=== PATIENT | male | born 1955 | race Caucasian/White ===

== ENCOUNTER → 2017-11-11 08:41 | Outpatient (CLI) | payer MEDICAID ==
[~2017-11-11] VITALS: Ht 180.3 cm; Wt 93.2 kg
--- NOTE | ~2017-11-11 | HEMODYNAMI ---
PATIENT:JASS TOPETE MEDICAL RECORD: [id number] : 55 LOCATION:TARA ADMISSION DATE: 11/11/17 Generatedon:11/11/201711:35 Patient name: JASS TOPETE Patient #: [id number] SSN: : 1 09/24/1954 Date of study: 11/11/2017 Page: Of Hemodynamic Procedure Report Patient Data Patient Demographics Procedure consent was obtained First Name: JASS Gender: Male Last Name: YOSELYN : 1955 [facility] Initial: MINERVA Age: 62 year(s) Patient #: [id number] Race: Unknown Additional ID: [id number] Contact details [address]: [address] [place] [address] State: [place] City: [place] Zip code: [address] Past Medical History Allergies Allergen Reaction Date Comments Reported Other allergy 11/11/2017 sulfa Admission Admission Data Admission Date: 11/11/2017 Admission Time: 8:41 Admit Source: Other Lab Results Lab Result Date: 11/11/2017 Lab Result Time: 9:20 Biochemistry Name Units Result Min Max BUN mg/dl 20 --(----)*- 7 18 Creatinine mg/dl 1.2 --(---*)-- 0.6 1.3 CBC Name Units Result Min Max Hematocrit % 44.4 --(*---)-- 42 54 Hemoglobin g/dl 15.5 --(-*--)-- 13.5 17.5 Procedure Procedure Types Cath Procedure Diagnostic Procedure C [facility] w/Coronaries PCI Procedure Coronary Stent Coronary Stent Initial Procedure Description Procedure Date Procedure Date: 11/11/2017 Procedure Start Time: 11:17 Procedure End Time: 11:33 Procedure Staff Name Function Hieu Fernandez MD Performing Physician Jose Nye RT Monitor Monet Ibrahim RT Scrub Aldo Petty RN Nurse Procedure Data Cath Procedure Fluoroscopy Diagnostic fluoroscopy Total fluoroscopy Time: 2.6 time: 2.6 min min Diagnostic fluoroscopy Total fluoroscopy dose: 594 dose: 594 mGy mGy Contrast Material Contrast Material Type Amount (ml) Isovue 300 65 Entry Location Entry Primary Successful Side Size Upsize Upsize Entry Closure Knapp ccessful Closure Location (Fr) 1 (Fr) 2 (Fr) Remarks Device Remarks Radial Right 6 Fr Mechanical artery Short Compression Estimated blood loss: 10 ml Diagnostic catheters Device Type Used For End Catheter Placement DIAGNOSTIC [place] 110cm 5 Procedure Fr catheter ([id number]) DIAGNOSTIC AR MOD 5Fr Procedure Catheter ([id number]) Procedure Complications No complications Procedure Medications Medication Administration Route Dosage Oxygen NC 2 l/min Lidocaine 2% added to field 20 Heparin Flush Bag added to field 2 bags (1000units/500ml NS) 0.9% NaCl I.V. 100 ml/hr Versed I.V. 2 mg Fentanyl I.V. 100 mcg Radial Cocktail I.A. 1 syringe (Verapomil 2mg/Nitro 400mcg/Heparin 1500units) Versed I.V. 2 mg Fentanyl I.V. 100 mcg Heparin Bolus I.V. 4000 units Integrilin (Bolus I.V. 8.5 ml 2mg/ml) Versed I.V. 1 mg Fentanyl I.V. 50 mcg Plavix P.O. 600 mg Hemodynamics Rest HGB: 15.5 (g/dl) Heart Rate: 56 (bpm) Snapshots Pre Cath Intra NCS Post Cath Vital Signs Time Heart Resp SPO2 etCO2 NIBP (mmHg) Rhythm Pain Sedation Rate (ipm) (%) (mmHg) Status Level (bpm) 11:05:00 58 16 97 0 142/88(119) NSR 0 (11) 10(A) , No pain 11:09:46 56 15 97 25.5 139/83(112) NSR 0 (11) 10(A) , No pain 11:14:27 61 16 96 33 139/90(108) NSR 0 (11) 10(A) , No pain 11:19:12 65 17 94 24 126/76(101) NSR 0 (11) 9(A) , No pain 11:23:52 65 18 94 38.3 133/78(100) NSR 0 (11) 9(A) , No pain 11:28:31 64 17 95 37.6 125/79(98) NSR 0 (11) 9(A) , No pain 11:30:42 64 18 95 39.8 131/73(93) NSR 0 (11) 10(A) , No pain Medications Time Medication Route Dose Verified Delivered Reason Note s Effectiveness by by 11:04:18 Oxygen NC 2 l/min Hieu Buffie used for Jim Petty RN procedure 11:04:24 Lidocaine 2% added 20ml Hieu Hagen for local to vial Jim Fernandez MD anesthetic field 11:04:31 Heparin Flush added 2 bags Hieu Hagen used for Bag to Jim Fernandez MD procedure (1000units/500ml field NS) 11:10:08 0.9% NaCl I.V. 100 Hieu Buffie Per physician ml/hr Jim Petty RN 11:14:47 Versed I.V. 2 mg Hieu Carlson for sedation Jim Petty RN 11:14:52 Fentanyl I.V. 100 mcg Hieu Carlson for sedation Jim Petty RN 11:18:29 Radial Cocktail I.A. 1 Hieu Hieu for (Verapomil syringe Jim Fernandez MD vasodilation 2mg/Nitro 400mcg/Heparin 1500units) 11:19:15 Versed I.V. 2 mg Hieu Chungie for sedation Jim Petty RN 11:19:20 Fentanyl I.V. 100 mcg Hieu Carlson for sedation Jim Petty RN 11:23:17 Heparin Bolus I.V. 4000 Hieu Buffie for veri fied units Jim Petty RN anticoagulation with dr fernandez 11:24:31 Integrilin I.V. 8.5 ml Hieu Carlson for wast ed (Bolus 2mg/ml) Jim Petty RN antiplatelet 1.5 ml therapy of vial 11:25:39 Versed I.V. 1 mg Hieu Carlson for sedation Jim Petty RN 11:25:42 Fentanyl I.V. 50 mcg Hieu Carlson for sedation Jim Petty RN 11:34:30 Plavix P.O. 600 mg Hieu Carlson for Jim Petty RN antiplatelet therapy Procedure Log Time Note 10:56:56 Informed consent obtained and on chart 10:57:00 Admit Source: Other 10:57:13 Diagnostic Cath status Elective 10:57:14 Aldo Petty RN sent for patient. Start room use. 10:57:15 Time tracking: Regular hours 10:57:18 Plan of Care:Hemodynamics will remain stable., Cardiac rhythm will remain stable., Comfort level will be maintained., Respiratory function will remain adequate., Patient/ family verbilizes understanding of procedure., Procedure tolerated without complication., Recovers from procedure without complications.. 10:57:22 H&P Date Dictated: 11/11/2017 New H&P dictated by physician.. 10:59:17 Patient received from Pre/Post Procedure Room to CCL 1 Alert and oriented. Tansferred to table in Supine position. 10:59:18 Warm blankets applied, and john hugger turned on for patient comfort. 10:59:19 Correct patient and procedure confirmed by team. 10:59:19 ECG and BP/O2 sat monitors applied to patient. 10:59:21 Pre-procedure instructions explained to patient. 10:59:22 Pre-op teaching completed and patient verbalized understanding. 10:59:23 Family in waiting room. 10:59:23 Patient NPO since Midnight. 10:59:47 Patient allergic to Other allergysulfa 11:04:02 Vital chart was started 11:04:18 Oxygen 2 l/min NC was administered by Aldo Petty RN; used for procedure; 11:04:24 Lidocaine 2% 20ml vial added to field was administered by Hieu Fernandez MD; for local anesthetic; 11:04:31 Heparin Flush Bag (1000units/500ml NS) 2 bags added to field was administered by Hieu Fernandez MD; used for procedure; 11:10:08 0.9% NaCl 100 ml/hr I.V. was administered by Aldo Petty RN; Per physician; 11:11:55 Baseline sample Acquired. 11:11:58 Rhythm: sinus rhythm 11:12:00 Full Disclosure recording started 11:12:02 Is the patient allergic to Iodine/contrast media? No. 11:12:04 Is patient on blood thinner?No 11:12:12 Patient diabetic? No. 11:12:14 Previous problem with sedation/anesthesia? No ? 11:12:15 Snore? Yes 11:12:16 Sleep apnea? No 11:12:17 Deviated septum? No 11:12:18 Opens mouth fully? Yes 11:12:18 Sticks out tongue? Yes 11:12:21 Airway obstruction? No ? 11:12:29 Pre procedure: left posterior tibial pulse 2+ Normal; easily identifiable; not easily obliterated 11:12:38 Modified Asad's test Ulnar < 7 seconds 11:12:40 Patient pain scale 0/10 ?. 11:12:47 IV patent on arrival in left wrist with 0.9% NaCl at [facility]. 11:13:14 Lab Result : Creatinine 1.2 mg/dl 11:13:14 Lab Result : BUN 20 mg/dl 11:13:14 Lab Result : Hematocrit 44.4 % 11:13:14 Lab Result : Hemoglobin 15.5 g/dl 11:13:16 Lab results completed and on chart. 11:13:18 Right Radial & Right Groin area was prepped with chlora-prep and draped in sterile fashion 11:13:19 Alarms reviewed by R. N. 11:13:20 Sharps counted by scrub and verified by R.N. 11:13:22 Use device set Radial Dx or PCI 11:13:23 ACIST Syringe (15309) opened to sterile field. 11:13:23 Medline Cath Pack ([id number]) opened to sterile field. 11:13:24 Bag Decanter (2002S) opened to sterile field. 11:13:26 ACIST Hand Control (68916) opened to sterile field. 11:13:26 ACIST Manifold (52356) opened to sterile field. 11:13:26 Tegaderm 4 x 4 (1626W) opened to sterile field. 11:13:28 MBrace Wrist Support ([id number]) opened to sterile field. 11:13:31 DIAGNOSTIC WIRE .035 260cm J wire (060530) opened to sterile field. 11:13:43 SHEATH 6Fr Prelude Radial ([id number]) opened to sterile field. 11:13:54 Physician arrived 11:13:54 --------ALL STOP TIME OUT------ 11:13:54 Final Timeout: patient, procedure, and site verified with staff and physician. All members of the team are in agreement. 11:13:56 Right Radial & Right Groin site verified by team. 11:13:59 Physical assessment completed. ASA score P 2 - A patient with mild systemic disease as per Hieu Fernandez MD. 11:14:02 Sedation plan: IV Moderate Sedation Medication:Versed, Fentanyl 11:14:47 Versed 2 mg I.V. was administered by Aldo Petty RN; for sedation; 11:14:52 Fentanyl 100 mcg I.V. was administered by Aldo Petty RN; for sedation; 11:17:22 Zero performed for pressure channel P1 11:17:37 Procedure started. 11:17:41 Local anesthetic to right radial artery with Lidocaine 2% by Hieu Fernandez MD.INITIAL ACCESS ONLY 11:17:49 A 6 Fr Short sheath was inserted into the Right Radial artery 11:18:29 Radial Cocktail (Verapomil 2mg/Nitro 400mcg/Heparin 1500units) 1 syringe I.A. was administered by Hieu Fernandez MD; for vasodilation; 11:18:55 A DIAGNOSTIC [place] 110cm 5 Fr catheter (896588) was advanced over the wire and used for Procedure. 11:19:15 Versed 2 mg I.V. was administered by Aldo Petty RN; for sedation; 11:19:20 Fentanyl 100 mcg I.V. was administered by Aldo Petty RN; for sedation; 11:19:30 LV gram done using BRYANT 11:19:33 Injector settings: Ml/sec: 5, Volume: 15, 11:19:46 EF : 60 % 11:19:52 LCA angiography performed. 11:20:15 INFLATOR Merit BasixCompak (PE0545) opened to sterile field. 11:20:15 CHOICE PT Extra Support 182cm wire ([id number]) opened to sterile field. 11:20:22 GUIDE 6FR XBLAD 3.5 catheter (65528958) opened to sterile field. 11:21:12 Catheter exchanged over wire. 11:21:16 A DIAGNOSTIC AR MOD 5Fr Catheter (685212E) was advanced over the wire and used for Procedure. 11:22:02 RCA angiography performed. 11:22:08 Catheter removed. 11:23:17 Heparin Bolus 4000 units I.V. was administered by Aldo Petty RN; for anticoagulation; verified with dr fernandez 11:23:21 6 Fr xblad 3.5 guide catheter was inserted over the wire 11:24:31 Integrilin (Bolus 2mg/ml) 8.5 ml I.V. was administered by Aldo Petty RN; for antiplatelet therapy; wasted 1.5 ml of vial 11:25:29 choice pt es wire advanced. 11:25:30 Wire advanced across lesion. 11::39 Versed 1 mg I.V. was administered by Aldo Petty RN; for sedation; ::42 Fentanyl 50 mcg I.V. was administered by Aldo Petty RN; for sedation; ::20 Place stent Inflation Number: 1 A INTEGRITY RX 3.0 x 18 stent ([id number]) was prepped and advanced across the Prox LAD. The stent was deployed at 17 CLAIRE for 0:10 (min:sec). 11::36 Stent catheter was removed intact over wire. 11::36 Wire removed. 11::46 Guide catheter removed. 11::53 TR BAND Large ([id number]) opened to sterile field. 11::00 Sheath removed intact; hemostasis achieved with Mechanical Compression to the Right Radial artery. 11:27:02 Procedure ended.(Physican Out) 11:27:11 Fluoroscopy time 02.60 minutes. 11:27:15 Fluoroscopy dose: 594 mGy 11::15 Flurop Dose total: 594 11::23 Contrast amount:Isovue 300 65ml. 11:27:24 Sharps counted by scrub and verified by R.N. 11::44 TR band inflated with 11cc of air. 11:29:15 Insertion/operative site no bleeding no hematoma. 11:29:22 Post right radial artery:stable, soft, clean and dry ::23 Post Procedure Pulses reassessed and unchanged 11::26 Post-procedure physical assessment completed. ASA score P 2 - A patient with mild systemic disease as per Hieu Fernandez MD. 11::27 Post procedure rhythm: unchanged. 11::31 Estimated blood loss: 10 ml 11::32 Post procedure instruction explained to patient.Patient verbalizes understanding. 11::33 Patient needs reinforcement of post procedure teaching. 11:29:40 Procedure type changed to Cath procedure, Diagnostic procedure, LHC, LHC w/Coronaries, PCI procedure, Coronary Stent, Coronary Stent Initial 11:30:20 Procedure and supply charges have been captured, reviewed, submitted and are correct. 11:30:23 Procedure Complication : No complications 11:32:56 Vital chart was stopped 11:32:57 See physician's report for complete and final results. 11:32:58 Report given to Pre/Post Procedure Room. 11:33:00 Patient transfered to Pre/Post Procedure Room with Stretcher. 11:33:02 Procedure ended. 11:33:02 Full Disclosure recording stopped 11:33:05 End room use (Document Last) 11:34:30 Plavix 600 mg P.O. was administered by Aldo Petty RN; for antiplatelet therapy; Intervention Summary Intervention Notes Time ActionType Lesion and Equipment Action# Pressure Duration Attributes Used 11:26:[address] stent Prox LAD INTEGRITY RX 1 17 00:10 3.0 x 18 stent ([id number]) Device Usage Item Name Manufacture Quantity Catalog Number Hospital Part Current M inimal Lot# / Charge Number Stock Stock Serial# Code ACIST Syringe Acist 1 76695 284261 627448 718645 2 0 (64754) Medical Systems Carmolex, Medline Cath Cardinal 1 [id number] 508552 82227 266997 5 The Label Corp ([id number]) Bag Decanter Microtek 1 2001S 105129 24578 176502 5 (2001S) Medical Inc. ACIST Hand Acist 1 86691 311318 405971 922412 5 Control (39696) Medical Systems Inc ACIST Manifold Acist 1 09745 913658 513550 775868 5 (06002) Medical Systems Inc Tegaderm 4 x 4 3M 1 1626W 597945 432300 819583 5 (1626W) MBrace Wrist Advanced 1 140-0250-00 681633 52820 735275 5 Support Vascular (105700693) Dynamics DIAGNOSTIC WIRE [facility] [place] 1 730923 431797 396706 498131 3 0 .035 260cm J wire (266790) SHEATH 6Fr Merit 1 [id number] 283155 730504 443489 5 Prelude Radial Medical ([id number]) DIAGNOSTIC Terumo 1 40-1793 593214 228569 825279 5 [place] 110cm 5 Fr catheter (689328) INFLATOR Merit Merit 1 [id number] 283320 561876 874196 1 5 DSG Technologies Medical (HB1795) CHOICE PT Extra [place] 1 [id number] 834146 733006 589896 5 Support 182cm Scientific wire ([id number]) GUIDE 6FR XBLAD Cardinal 1 [id number] 227066 354982 783518 1 0 3.5 catheter Health (58416710) DIAGNOSTIC AR Cardinal 1 [id number] 129892 040956 062962 1 5 MOD 5Fr Health Catheter (858457A) INTEGRITY RX Medtronic 1 [id number] 615734 264245 615876 5 [id number] 3.0 x 18 stent ([id number]) TR BAND Large Terumo 1 [id number] 266586 060289 757252 4 0 ([id number]) Signature Audit [place] Stage Time Signature Unsigned Intra-Procedure 11/11/2017 Jose Nye 11:35:00 AM RT(R) Signatures Monitor : Jose Nye RT Signature : Date : Time : [place] [id number] [facility] [place] [address]
--- NOTE | ~2017-11-11 | HP ---
PATIENT: JASS HALL MEDICAL RECORD: [id number] ACCOUNT: [id number] LOCATION:TARA : 55 ADMISSION DATE: 11/11/17 HISTORY AND PHYSICAL EXAMINATION DATE OF SERVICE: 11/11/2017 for the H&P. DIAGNOSES: 1. Angina. 2. Abnormal nuclear stress test. 3. Hypertension. 4. Hyperlipidemia. HISTORY OF PRESENT ILLNESS: Mr. Hall presents with an escalating anginal chest discomfort. Underwent risk stratification with nuclear stress testing revealing significant reversibility, is now brought for cardiac catheterization. PHYSICAL EXAMINATION: GENERAL APPEARANCE: Well-nourished, well-developed, appears stated age. Level of distress, comfortable. PSYCHIATRIC: Mental status, alert, normal affect. Orientation, oriented to time, place and person. EYES: Lids and conjunctiva, noninjected. No discharge, no pallor. ENT: Lips, teeth, gums, normal dentition. Oropharynx, no cyanosis, no pallor. NECK: Carotid arteries, bilateral normal upstroke, no bruits, no thrills. JUGULAR VEINS: No jugular venous pressure or distention. CERVICAL LYMPH NODES: Nontender, nonenlarged. THYROID: Not enlarged. Nontender. No nodules. LUNGS: Respiratory effort, unlabored. CHEST: Normal curvature. No thoracic deformity. No chest wall tenderness. Percussion, resonant. Auscultation, clear. No wheezes, no rales, no rhonchi. CARDIOVASCULAR: Precordial exam, nondisplaced. No heaves or pericardial thrills. Rate and rhythm, regular. Heart sounds, normal S1, normal S2. No S3, no gallop, no rub. Systolic murmur, not heard. Diastolic murmur, not heard. EXTREMITIES: No cyanosis, no edema. Peripheral pulses, full and equal in all extremities, except as noted. No bruits appreciated. ABDOMEN: Soft, nondistended. Normal aorta. No bruit. Nontender. No masses. Liver, nontender, no hepatomegaly. Spleen, nontender, no splenomegaly. MUSCULOSKELETAL: No joint tenderness. No joint swelling. No erythema. NEUROLOGICAL: Normal gait, normal strength, normal tone. SKIN: Warm and dry. REVIEW OF SYSTEMS: The patient reports easy bruising but reports no swollen glands. The patient reports no fever, no night sweats, no significant weight gain, no significant weight loss. No significant exercise tolerance. The patient reports no dry eyes, no irritation, no vision change. Patient reports no difficulty hearing and no ear pain. Patient reports no frequent nose bleeds or nose and sinus problems. Patient reports on arm pain on exertion. No shortness of breath while lying down. No history of heart murmur. Patient reports no cough, no wheezing or coughing up blood. Patient reports no abdominal pain, no vomiting. Normal appetite. No diarrhea and not vomiting blood. No nausea and no constipation. Patient reports no incontinence. No difficulty urinating. No hematuria. No increased frequency. Patient reports no muscle aches. No weakness, no arthralgias, no back pain. No swelling of the extremities. Patient reports no abnormal mole, no jaundice, no rashes. Reports HISTORY AND PHYSICAL [id number] YOSELYN,JASS MINERVA no loss of consciousness. No weakness and no numbness. No seizures, dizziness, or headaches. The patient reports no depression, no sleep disturbance, feeling safe in a relationship and no alcohol abuse. Patient reports on fatigue. Reports no runny nose or sinus pressure. No itching, no hives, and no frequent sneezing. OVERALL IMPRESSION: Escalating angina in unstable fashion with abnormal nuclear stress test, most likely has hemodynamically significant coronary artery disease. We will proceed with coronary angiography. Further care depends upon findings of the angiography. TRANSINT:[id number] Voice Confirmation ID: [id number] DOCUMENT ID: [id number] FELICITAS RON MD at 1056 CC: [id number] DICTATION DATE: 11/11/17 1019 MID LEVEL BUSINESS ANALYST: 11/11/17 1142 DEP CLI 11/11/17 [place] [id number] [place] [id number]
--- NOTE | ~2017-11-11 | OP ---
PATIENT NAME: JASS TOPETE MEDICAL RECORD: [id number] :55 LOCATION:D.CAT ADMISSION DATE: SURGEON: FELICITAS RON MD DATE OF OPERATION: 11/11/2017 PROCEDURES: 1. PTCA stent to LAD. 2. Left heart catheterization. 3. Selective coronary angiography. 4. Left ventriculogram. INDICATION: Angina and coronary artery disease. PROCEDURE PERFORMED: After informed consent was obtained and after detailed description of risks, benefits as well as alternative therapies, the patient elected to proceed with angiogram and angioplasty. The right radial area was prepped and draped in normal sterile fashion. Right radial artery was cannulated via modified Seldinger technique with placement of 6-Algerian sheath. All catheters exchanged through this sheath. FINDINGS: The left ventriculogram was performed in standard 30-degree BRYANT view, reveals good cardiac wall motion throughout all segments. Overall ejection fraction estimated 60%. SELECTIVE CORONARY ANGIOGRAPHY: 1. Left main is with no significant angiographic disease. 2. Left anterior descending has 75% stenosis proximally. 3. The left circumflex has mild irregularities, but no flow-limiting stenosis. 4. Right coronary has mild irregularities, but no flow-limiting stenosis. PTCA STENT OF THE LAD: The stent used was a 3.0 x 18 mm Integrity. Result was 0% residual stenosis. OVERALL IMPRESSION: Successful percutaneous transluminal angioplasty stent of the left anterior descending going from 75% initial stenosis to 0% residual stenosis. TRANSINT:[id number] Voice Confirmation ID: [id number] DOCUMENT ID: [id number] FELICITAS RON MD at 1056 CC: [id number] DICTATION DATE: 11/11/17 1130 COMMERCIAL ACCOUNT OFFICER: 11/11/17 1319 DEP CLI 11/11/17 [place] [address]
[~2017-11-11 08:41] MED LIST: AZELASTINE137 MCG/0. NASAL; BAYER CHEWABLE81 MG PO; CLARITIN 10 MG10 MG PO; DESERYL100 MG PO; FENOFIBRATE160 MG PO; METOPROLOL TART50 MG PO; NEURONTIN 300300 MG PO; OXY IR30 MG PO; PLAVIX75 MG PO; PRAVASTATIN SOD10 MG PO; SINGULAIR10 MG PO; SYNTHROID25 MCG PO; TESTOSTERON200 MG/ML IM; VIAGRA100 MG PO; VITAMIN D250000 UNIT PO; ZESTRIL40 MG PO; ZYRTEC10 MG PO
[2017-11-11 09:30] VITALS: BP 146/89; Ht 180.3 cm; Wt 93.2 kg
[2017-11-11 09:35] LABS: BASOPHILS 0.8 % (0-2); EOSINOPHILS 3.7 % (0-7); HEMATOCRIT 44.4 % (42.0-54.0); HEMOGLOBIN 15.5 g/dL (13.5-17.5); IMMATURE GRANULOCYTES 0.3 % (0-5); MCH 34.1 pg (26.0-34.0); MCHC 34.9 g/dL (31.0-37.0); MCV 97.8 fL (80.0-100.0); MEAN PLATELET VOLUME 10.9 fL (7.4-10.4); MONOCYTES 10.3 % (2-11); NEUTROPHILS 59.9 % (40-80); PLATELET COUNT 165 10x3/uL (130-400); RBC 4.54 10x6/uL (4.20-6.10); RDW 13.1 % (11.5-14.5); WBC 7.6 10x3/uL (4.8-10.8)
[2017-11-11 09:51] LABS: ANION GAP 16.2 mmol/L (8-16); CALCIUM 9.4 mg/dL (8.5-10.1); CARBON DIOXIDE 23.5 mmol/L (21.0-32.0); CREATININE - SERUM 1.2 mg/dL (0.6-1.3); POTASSIUM - SERUM 4.7 mmol/L (3.5-5.1)
== END | disposition home or self-care (01) ==
LOC: D.CATH 08:41
PROVIDERS: Internal Medicine Interventional Cardiology
DX: I20.9 Angina pectoris, unspecified (principal); R94.30 Abnormal result of cardiovascular function study, unspecified; I10 Essential (primary) hypertension; E78.5 Hyperlipidemia, unspecified; Z01.812 Encounter for preprocedural laboratory examination